=== PATIENT | male | born 1950 | race Caucasian/White ===

== ENCOUNTER → 2016-03-24 | Outpatient (CLI) | payer OTHER, MEDICARE ==
[~2016-03-24] MED LIST: ALBUAER19 INH; AMOX875T3 PO; ASPI81TA21 PO; CALCTAB13 PO; HYDR25TA4 PO; LISI-729 PO; MULTTAB58 PO; PRAV20TA PO
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
== END | disposition home or self-care (01) ==
LOC: C.NEUR 14:00
PROVIDERS: ATTEND Psychiatry & Neurology Neurology
DX: R55 Syncope and collapse (principal)

== ENCOUNTER 2019-10-08 09:14 | Inpatient (IN) ==
[2019-10-08] MEDS ORDERED: ONDANSETRON INJ 2 MG/ML 2 ML VIAL IV STA (10:31)
--- NOTE | 2019-10-08 10:50 | XRay Report ---
XR knee RT 3V CLINICAL HISTORY: Postoperative swelling. COMPARISON: None FINDINGS: Mild lateral patellar tilt is noted. Alignment of the right knee is otherwise anatomic. Th ere is no fracture or suspicious lesion. There is a moderate size joint effusion. Note is made of a 1 .2 cm calcific density projecting lateral to the distal metadiaphysis of the right femur. Soft tissue swelling of the right knee is noted. Mild to moderate right knee osteoarthritis is noted. Moderate v ascular calcification. IMPRESSION: 1. No acute fracture. 2. Moderate size right knee joint effusion. Possible joint body. Soft tissue swelling 3. Moderate tricompartmental osteoarthritis of the right knee. ACT 112: Negative or not required by law. Electronically signed by: Laron Vigil M.D. 10/08/2019 10:49 AM
[2019-10-08] MEDS: HYDROmorphone INJ 0.5 MG/0.5 ML SYR IV PRN ×4 (11:12→14:47)
[2019-10-08 11:25] LABS: Basophils # (auto) 0.04 K/uL (0-0.2); Basophils % (auto) 0.6 %; Eosinophils # (auto) 0.28 K/uL (0-0.5); Eosinophils % (auto) 4.1 %; Hemoglobin 15.4 g/dL (14.0-18.0); Immature Granulocytes # (auto) 0.03 K/uL (0.00-0.02); Immature Granulocytes % (auto) 0.4 %; Lymphocytes # (auto) 1.46 K/uL (1.2-3.4); Lymphocytes % (auto) 21.4 %; Mean Corpuscular Hemoglobin 32.3 pg (25-34); Mean Corpuscular Hgb Conc 33.5 g/dL (32-36); Mean Corpuscular Volume 96.4 fL (80-100); Mean Platelet Volume 10.5 fL (7.4-10.4); Monocytes % (auto) 14.7 %; Neutrophils % (auto) 58.8 %; Platelet Count 226 K/uL (130-400); RDW Standard Deviation 49.5 fL (36.4-46.3); Red Blood Count 4.77 M/uL (4.7-6.1); White Blood Count 6.81 K/uL (4.8-10.8)
[2019-10-08 11:39] LABS: BUN Creatinine Ratio 19.1 (10-20); Calcium 8.7 mg/dl (8.5-10.1); Creatinine Clr Calc Pharmacy 87.7 ml/min; Est GFR (African American) 85.9; Est GFR (Non-African American) 74.1; Potassium 4.4 mmol/L (3.5-5.1)
[2019-10-08 11:40] LABS: C Reactive Protein 0.89 mg/dl (0-0.29)
[2019-10-08] MEDS ORDERED: XYLOCAINE 1%/SOD BICARB 20 ML VIAL INFIL ONE (12:28)
[2019-10-08] MEDS ORDERED: ACETAMINOPHEN 500 MG TAB PO STA (14:44)
[2019-10-08] MEDS ORDERED: ACETAMINOPHEN 500 MG TAB ONE (14:45)
[2019-10-08 15:14] LABS: Appearance Synovial Fluid CLOUDY; Color Synovial Fluid AMBER; Mononuclear WBC Synovial 92.9 %; Polynuclear WBC Synovial 7.1 %; RBC Synovial Fluid (A) 12000 /uL; Source Synovial Fluid KNEE; WBC Synovial Fluid (A) 143 /ul (0-200)
[2019-10-08] MEDS ORDERED: VANCOMYCIN HCL 2,250 MG in SODIUM CHLORIDE 0.9% 500 ML IV ONE (15:36)
[2019-10-08] MEDS ORDERED: cefTRIAXone SODIUM 2,000 MG/70 ML BAG IV STA (15:36)
[2019-10-08] MEDS ORDERED: VANCOMYCIN CONSULT ACTIVE PRN (15:36)
--- NOTE | 2019-10-08 16:32 | Orthopedic Consultation ---
Date of Consultation October 08, 2019 Assessment & Plan (1) Cellulitis of right leg: He appears to have cellulitis of his right lower leg, with fairly diffuse edema of the entire right leg. Other possibilities include a deep venous thrombosis, although DVT ultrasound 2 days ago was negative. It may be worthwhile to repeat this. His symptoms did seem to improve slightly with oral antibiotics started 8 days ago, although now he feels like his pain and other symptoms are worsening over the past 3 to 4 days. I think he likely needs admitted to the Internal Medicine service for IV antibiotics to treat the cellulitis. He has no evidence of a septic knee joint. His knee joint looks very good on exam. It is cool, not erythematous or swollen, and aspiration today was negative for septic joint. No indication for surgical intervention at this time. Present on Admission?: Yes History of Present Illness Reason for Consultation: Right leg pain, redness, and swelling Requesting Physician: Dr. Albaro Pedro History of Present Illness Mr. Perea is a 68-year-old male who presents to the emergency room today with worsening right leg pain, swelling, and redness. History is obtained from the patient, [facility] [place] [facility] medical records, and discussion with Dr. Baca's PA, who recently saw him in clinic. He recently underwent a right knee arthroscopy with partial medial meniscectomy and shaving chondroplasty of the patella on September [address] Baca. After the surgery, he noticed this pain, swelling, and redness on his lower leg. He saw Dr. Baca in clinic on September 29, at which time the lower leg was actually weeping some serous fluid. There were no problems noted with the knee at the time. He was started on oral Keflex, and the patient reports that the weeping wounds in the lower leg stopped with that treatment. He then saw the PA, César Cueva, 2 days ago on October 05, when he had continued to have this leg pain and swelling, although no weeping at this point. There was concern for possible blood clot, and a DVT ultrasound was ordered, which was negative. He called the clinic again yesterday, and arrangements were made for him to see Wound Care for possible Unna boot application, which is currently set up for Thursday. However, the patient feels like his pain is progressively worsening, and he therefore presented to the emergency department today. He denies any significant medical problems. He has never had anything like this occur before. He denies any history of heart disease or heart failure. He does denies any clotting disorders. He is not on any anticoagulation after his knee surgery or for any other reason. Allergies Allergy/AdvReac Type Severity Reaction Status Date / Time desipramine Allergy Unknown unknown Verified 03/14/16 06:37 Tetracyclines Allergy Unknown unknown Verified 03/14/16 06:37 trimethoprim Allergy Unknown unknown Verified 03/14/16 06:37 Home Medications Home Medications Medication Instructions Recorded Confirmed Type albuterol sulfate [Ventolin HFA] 2 inh INHALATION Q4H PRN 10/08/19 10/08/19 History allopurinol 300 mg PO QAM 10/08/19 10/08/19 History atorvastatin 40 mg PO QAM 10/08/19 10/08/19 History cephalexin 500 mg PO Q8H 10/08/19 10/08/19 History losartan 100 mg PO QAM 10/08/19 10/08/19 History multivitamin [Multiple Vitamins] 1 tab PO DAILY 10/08/19 10/08/19 History oxycodone 5 - 10 mg PO Q6H PRN 10/08/19 10/08/19 History Patient History Social History Feels Safe at Home: Yes Smoking Status: Never smoker Physical Exam Physical Exam: General: The patient appears well developed and well nourished. Awake, alert, and oriented x 3. He appears very comfortable and in no apparent distress. Appropriate mood and affect. Normal gait and station. Normal coordination and balance. Skin: The skin over the right knee shows 2 small and well-healed arthroscopy incision sites without evidence of infection. No erythema whatsoever anywhere around the knee joint itself. He has erythema starting in the calf area, and extending all the way down to his ankle and foot. Inspection/Palpation: Visual inspection reveals no gross deformity of the knee. There is a small palpable knee joint effusion. No tenderness to palpation directly around the knee joint. The knee joint itself is cool with no significant warmth, erythema, or induration. However, he has significant warmth, induration, and fairly severe tenderness to palpation around the lower leg circumferentially around the calf area and extending into the ankle and foot. Range of Motion: Range of motion of the entire lower leg and foot is limited due to pain. Stability: There is no gross ligamentous laxity. Strength: Knee strength is limited due to pain. Sensation: The patient reports no numbness in the foot. Vascular: Foot is warm and well perfused. He appears to have diffuse edema of the entire right leg compared to the left, extending all the way up to the thigh. Results & Data ([facility]) Vital Signs (Past 12 Hours) Vital Signs Temp Pulse Pulse Resp BP BP Pulse Ox 10/08/19 16:00 72 18 126/86 97 10/08/19 14:43 80 18 138/81 96 10/08/19 13:09 80 18 149/91 H 92 10/08/19 12:21 78 18 151/106 H 96 10/08/19 11:05 76 18 159/102 H 97 10/08/19 09:29 36.5 C 82 20 182/102 H 96 Laboratory Results Knee aspiration performed in the emergency department today shows only 143 white blood cells (93% monocytes, 7% PMNs), 12,000 red blood cells. Diagnostic Findings X-ray of the right knee shows some mild diffuse arthritis, especially in the patellofemoral joint. There appears to be a possible loose body up in the suprapatellar pouch. Ultrasound performed 2 days ago on October 05 was negative for deep venous thrombosis.
--- NOTE | 2019-10-08 17:05 | History & Physical Report ---
Date of Service October 08, 2019 Assessment & Plan (1) Cellulitis of right leg: This is a 68-year-old male who has significant past medical history of HTN, HLD, gout, Bronchiectasis, chronic low back pain who presents to ED secondary to worsening right leg pain, redness and swelling times approximately 10 days In ED patient remained hemodynamically stable and was afebrile. His white blood cell count was WNL, H&H stable at 15.4 and 46.0, platelet 226, BUN 19, creatinine 1.02, ESR 35, CRP 0.89. Right knee x-ray revealed no acute fracture, moderate sized right knee effusion, moderate tricompartmental arthritis. He underwent aspiration of the joint which was rod in color and normal WBCs. No overt pus per ED provider. He was seen and evaluated by orthopedics while in ED. Blood culture and synovial fluid culture sent for analysis. Symptoms felt likely due to cellulitis versus joint infection. Failed outpt oral antibiotic therapy. He was started on IV vancomycin and rocephin. admit to med/surg continue IV antibiotics Vancomycin and rocephin elevate RLE orthopedics consult appreciated oxycodone 5-10mg prn pain control bowel regimen (2) HTN (hypertension): blood presure stable continue losartan (3) HLD (hyperlipidemia): continue statin (4) Gout: continue allopurinol (5) DVT prophylaxis: SQ Lovenox Dispostion: admit to med/surg Follow up: PCP Dr. Mota upon discharge along with appropriate orthopedic follow up Pt was seen and examined in collaboration with Dr. Olson, please see addendum. History of Present Illness Chief Complaint: R leg swelling and increased redness x 10 days. Primary Care Provider: Anselmo Mota MD This is a 68-year-old male who has significant past medical history of HTN, HLD, gout, Bronchiectasis, chronic low back pain who presents to ED secondary to worsening right leg pain, redness and swelling times approximately 10 days. Of significance patient underwent R knee arthroscopy with partial medial meniscectomy and shaving chondroplasty of the patella on 09/28/2019. Since procedure he has been experiencing increased right leg pain, swelling and warmth. He was seen in clinic on 10/02 and started on Keflex and reevaluated on 10/05. He underwent right lower extremity venous Doppler on 10/05 which was negative. He has been taking Keflex as [id number] mg 3 times daily. He compares pain to right leg to his gout. Complains of being warm and increased swelling. Swelling extends from behind the knee to the ankle and foot. He denies any fever, chills, sweats, lightheadedness, dizziness, chest pain, shortness of breath, cough, nausea, vomiting, diarrhea, abdominal pain. He did move his bowels yesterday. He denies any constipation despite taking oxycodone for pain. His appetite has been normal. Of significance he was tested for COVID on 09/25 for preop which was negative. In ED patient remained hemodynamically stable and was afebrile. His white blood cell count was WNL, H&H stable at 15.4 and 46.0, platelet 226, BUN 19, creatinine 1.02, ESR 35, CRP 0.89. Right knee x-ray revealed no acute fracture, moderate sized right knee effusion, moderate tricompartmental arthritis. He underwent aspiration of the joint which was rod in color and normal WBCs. No overt pus per ED provider. He was seen and evaluated by orthopedics while in ED. Blood culture and synovial fluid culture sent for analysis. Symptoms felt likely due to cellulitis versus joint infection. He was started on IV vancomycin and rocephin. Allergies Allergy/AdvReac Type Severity Reaction Status Date / Time desipramine Allergy Unknown unknown Verified 03/14/16 06:37 Tetracyclines Allergy Unknown unknown Verified 03/14/16 06:37 trimethoprim Allergy Unknown unknown Verified 03/14/16 06:37 Home Medications Home Medications Medication Instructions Recorded Confirmed Type albuterol sulfate [Ventolin HFA] 2 inh INHALATION Q4H PRN 10/08/19 10/08/19 History allopurinol 300 mg PO QAM 10/08/19 10/08/19 History atorvastatin 40 mg PO QAM 10/08/19 10/08/19 History cephalexin 500 mg PO Q8H 10/08/19 10/08/19 History losartan 100 mg PO QAM 10/08/19 10/08/19 History multivitamin [Multiple Vitamins] 1 tab PO DAILY 10/08/19 10/08/19 History oxycodone 5 - 10 mg PO Q6H PRN 10/08/19 10/08/19 History Past Med/Surg History Medical History Bronchiectasis Chronic low back pain Gout HLD (hyperlipidemia) HTN (hypertension) Surgical History History of arthroscopy of knee History of colonoscopy FH colon ca, hx of polypectomy History of cystoscopy History of hernia repair History of tonsillectomy Family History Brother , 19 Liver cancer Brother Cancer colon ca Father Hypertension Mother , 80 Myocardial infarction Social History (Updated 10/08/19 @ 17:02 by Marissa Fuentes PA-C) Preferred Language: Persian Communication Ability: Effective Senior Accountant Required: No Beliefs That Will Affect Care: None marital status: Current Living Situation: Spouse Other Information That Helps Us Care for You: No Feels Safe at Home: Yes Safety Concerns: Feels Safe At This Time Smoking Status: Never smoker Do You Dip or Chew Tobacco: No ; Second Hand Exposure: No ; Tobacco Cessation Education Requested by Patient: No Hx Alcohol Use: No Hx Substance Use: No Review of Systems Review of Systems: All systems reviewed & are unremarkable except as noted in HPI & below Physical Exam Physical Exam: Constitutional: WD/WN, vitals as above, NAD, sitting up in bed, pleasant, conversing easily Head: Normocephalic, Atraumatic Eyes: PERRL, conjunctivae normal, anicteric sclerae ENMT: external ear and nose normal, oropharynx normal Neck: trachea midline, no thyromegaly normal visual inspection Respiratory: normal respiratory effort, lungs clear to auscultation, no wheeze, rales, rhonchi. Normal insp/exp effort, no accessory muscle use Cardiovascular: RRR, 1/6 FERNANDO noted RUSB, no murmur Vessels: no JVD or carotid bruit Chest: normal inspection of chest Abdomen: normal bowel sounds, soft, nontender, no hepatosplenomegaly Musculoskeletal: no cyanosis or clubbing, extremities motor strength 5/5 , right knee sutures CDI, mild knee effusion but otherwise no erythema to joint itself. Right lower extremity erythema from right tibial tubercle to right ankle pretibially, warm, painful to palpation and edematous extending from tibial tubercle to dorsal pedal area. bilateral pedal pulse +2 and equal. Skin: no rashes, multiple SKs, warm and dry normal turgor Neurologic: PERRL, EOMI, accommodation nl, no face palsy, no dysarthria CN's II-XI intact bilaterally and moves all extremities Psychiatric: A+Ox3, euthymic affect Lymphatic: no cervical or axillary lymphadenopathy : deferred Results & Data Results & Data ([facility]) Vital Signs (Past 12 Hours) Vital Signs Temp Pulse Pulse Resp BP BP Pulse Ox 10/08/19 16:00 72 18 126/86 97 10/08/19 14:43 80 18 138/81 96 10/08/19 13:09 80 18 149/91 H 92 10/08/19 12:21 78 18 151/106 H 96 10/08/19 11:05 76 18 159/102 H 97 10/08/19 09:29 36.5 C 82 20 182/102 H 96 Laboratory Results Short CBC 10/08/19 Range/Units 11:05 WBC 6.81 (4.8-10.8) K/uL Hgb 15.4 (14.0-18.0) g/dL Hct 46.0 (42-52) % Plt Count 226 (130-400) K/uL BMP 10/08/19 11:05 Sodium 141 Potassium 4.4 Chloride 110 H Carbon Dioxide 29 BUN 19 H Creatinine 1.02 Glucose 94 Calcium 8.7 Diagnostic Findings Knee Xray: IMPRESSION: 1. No acute fracture. 2. Moderate size right knee joint effusion. Possible joint body. Soft tissue swelling 3. Moderate tricompartmental osteoarthritis of the right knee. Medications Administered Hydromorphone HCl (Dilaudid) 0.5 mg IV Q15M PRN PRN Reason: Pain Stop: 10/22/19 10:30 Last Admin: 10/08/19 14:47 Dose: 0.5 mg Documented by: [id number] Admin: 10/08/19 12:23 Dose: 0.5 mg Documented by: [id number] Admin: 10/08/19 11:56 Dose: 0.5 mg Documented by: [id number] Admin: 10/08/19 11:12 Dose: 0.5 mg Documented by: [id number] Vancomycin HCl 2,250 mg/ (Sodium Chloride) 545 mls @ 200 mls/hr IV NOW ONE Stop: 10/08/19 18:19 Last Admin: 10/08/19 16:45 Dose: 200 mls/hr Documented by: [id number] Discontinued Medications Acetaminophen (Tylenol) 1,000 mg PO NOW STA Stop: 10/08/19 14:45 Last Admin: 10/08/19 14:46 Dose: 1,000 mg Documented by: [id number] Acetaminophen (Tylenol) Confirm Administered Dose 1,000 mg .ROUTE .STK-MED ONE Stop: 10/08/19 14:46 Last Admin: 10/08/19 14:47 Dose: Not Given Documented by: [id number] Ceftriaxone Sodium (Rocephin) 2,000 mg in 70 mls @ 140 mls/hr IV NOW STA Stop: 10/08/19 16:05 Last Infusion: 10/08/19 16:12 Dose: 0 mls/hr Documented by: [id number] Admin: 10/08/19 15:45 Dose: 140 mls/hr Documented by: [id number] Lidocaine HCl (Buffered Lidocaine 1%) Confirm Administered Dose 20 ml INFIL .STK-MED ONE Stop: 10/08/19 12:29 Last Admin: 10/08/19 13:10 Dose: 20 ml Documented by: [id number] Ondansetron HCl (Zofran) 4 mg IV NOW STA Stop: 10/08/19 10:32 Last Admin: 10/08/19 11:12 Dose: 4 mg Documented by: [id number] Code Status & VTE Plan Code Status Full Code VTE Prophylaxis Plan VTE Prophylaxis will be ordered: Yes Supervising Physician Co-Signing Physician Notes Patient is a 68-year-old male with history of hypertension, hyperlipidemia, gout and other medical problems presents with history of worsening right leg pain, redness, swelling since 10 days duration. Patient had right knee arthroplasty 10 days ago. Patient is evaluated by orthopedics in ED and aspiration of the right knee was done he admitted, spinal fluid was sent for cultures. Venous Doppler is negative for DVT. Please review HPI for complete details of presentation. On exam patient is well-built and nourished, no apparent distress, normocephalic atraumatic, lungs are clear to auscultation S1-S2,+ murmur, bilateral lower extremity edema, abdomen soft, nontender, normal bowel sounds, skin no focal neurologic deficits, right lower extremity erythema,+ w armth, swelling noted. Patient is admitted for management of right leg cellulitis. Will start on IV vancomycin, Rocephin. Pain control. Blood cultures obtained. Blood pressure is elevated likely situational secondary to pain. Adjust antihypertensive medication as needed. I personally reviewed the record. Patient is interviewed and examined at bedside. Patient's care is coordinated with Marissa Fuentes PA-C. Please refer to the documentation above for details of patient's presentation and for discussion of other issues.
--- NOTE | 2019-10-08 17:16 | Ultrasound Report ---
RIGHT LOWER EXTREMITY VENOUS DOPPLER CLINICAL HISTORY: right leg swelling COMPARISON STUDY: Right lower extremity venous Doppler ultrasound October 06, 2019. TECHNIQUE: Sonography of the deep venous system of the right lower extremity was performed. Compress ion and augmentation were evaluated. FINDINGS: The right common femoral, superficial femoral and popliteal veins were compressible. Augme ntation was normal. Flow was shown within the deep calf vessels. IMPRESSION: No evidence of deep venous thrombus within the right lower extremity. ACT 112: Negative or not required by law. Electronically signed by: Laron Vigil M.D. 10/08/2019 5:15 PM
[2019-10-08] MEDS ORDERED: MoRPHine SULFATE 4 MG/ML 1 ML CARP\\VIAL IV STA (17:24)
--- NOTE | 2019-10-08 17:40 | Emergency Department Note ---
Impression & Plan Cellulitis of right leg, Post-operative pain, Hemarthrosis ED Provider Note INFORMANT: [Patient] ED PROVIDER(S): Albaro Pedro MD CHIEF COMPLAINT: Right leg pain PLAN: Disposition: Admitted Condition: [Good] MEDICAL DECISION MAKING: Patient presented due to worsening right leg pain and swelling. He also noted redness. He had surgery and was on Keflex. Despite using the Keflex and increasing his pain medicine to oxycodone to every 6 hours he was still having increased pain. Outpatient ultrasound imaging was reviewed and was -2 days ago. The patient notes he has had increased pain and swelling since. His CBC and chemistry panel was unremarkable. CRP is mildly elevated. I did consult with Dr. Jesus Parham of [facility]. He asked for the need to be aspirated in order to help with the decision making. A knee aspiration was done by me after the patient consented. I gave my usual and customary discussion regarding this issue. This revealed hemarthrosis. No pus was noted. White cells were noted but within normal range. He had a culture and Gram stain sent. The patient required several doses of IV Dilaudid for comfort. He was still having pain. At that point Dr. Parham did present to the emergency department and evaluated the patient. He felt that the knee did not require any surgical intervention. Due to the redness, pain and swelling there was concern for cellulitis of the right leg. The wounds themselves look good per orthopedics. Internal medicine admission was recommended. I did discuss the case with Marissa Fuentes PA-C. The patient will be admitted under Dr. Olson. The patient was given IV Rocephin and vancomycin for broad-spectrum co verage. Due to the increased swelling I did order a repeat ultrasound. That is pending. Triage Nursing notes reviewed and agree them. Vital Signs: reviewed and remarkable for . Differential diagnosis: Fracture, subluxation, dislocation, contusion, ligamentous injury, neurovascular, compartment syndrome, rhabdomyolysis, as well as other pathologies. Diagnostics interpreted by me: Imaging studies: X-ray imaging of the right knee reveals significant effusion. No fracture noted. No subcu air. Consultation(s): [facility] HPI: The patient is a 68 year old male who presents to the Emergency Room with complaints of right leg pain and swelling. This started over 1 week ago and is worsening. The patient also notes the following associated symptoms, redness and warmth of the leg. The patient has been using Keflex and oxycodone relieving factors. Current pain is rated as 8/10. Patient had knee scope surge ry by [facility], Dr. Baca. He notes on office follow-up with increasing pain they did start him on Keflex. Despite taking that and the oxycodone he is getting worse. He did have an outpatient ultrasound which was negative for DVT 2 days ago. Pt denies LOC, headache, fevers, chills, diaphoresis, visual changes, neck pain, chest pain, breathing difficulties, nausea, vomiting, abdominal pain, back pain, melena, hematochezia, urinary symptoms, numbness, weakness, lymphadenopathy, rash, or other complaints. ROS: See above HPI for pertinent positives & negatives. A total of [10] systems reviewed and were otherwise negative. PAST MEDICAL HISTORY:Gout PAST SURGICAL HISTORY:[See Below] FAMILY HISTORY:[See Below] SOCIAL HISTORY:[See Below] no tobacco HOME MEDICATIONS:[See Below] ALLERGIES:[See Below] VITALS:[See Below] PHYSICAL EXAMINATION: GENERAL: Awake, alert, well-appearing, in no distress HENT: Normocephalic, atraumatic. Oropharynx unremarkable. EYES: Normal conjunctiva. Sclera non-icteric. NECK: Inspection normal. Non-tender. Supple. No nuchal rigidity. FROM. No masses. RESPIRATORY: Clear to auscultation. No wheezes. No rales. Normal respiratory effort. CARDIAC: Normal rate. Normal rhythm. No murmurs. No rubs. Extremities warm and well perfused. Pulses equal. No JVD. GI: Soft, non-distended. No tenderness to palpation. No rebound or guarding. No masses. RECTAL: Deferred. MUSCULOSKELETAL: Atraumatic. Chest examination reveals no tenderness. The back is symmetrical on inspection without obvious abnormality. There is no CVA tenderness to palpation. Moderate right knee joint edema. Incisions are clean dry and intact. Range of motion limited secondary to pain. LOWER EXTREMITIES: Calves are equal size bilaterally and non-tender. 2+ right- sided edema. Warmth and erythematous right-sided discoloration. NEURO: Normal sensorium. No sensory or motor deficits noted. SKIN: No rash or jaundice noted. ED COURSE: PROCEDURE: ASPIRATION: Indication: Suspected infection. Verbal consent was obtained after the risks and benefits were explained, including but not limited to bleeding, scarring, infection, pain, and bone/joint/nerve damage. At this time, the risks of the procedure are less than the risks of NOT performing the procedure. A time out was taken and the correct patient and site identified. The skin over the lateral right knee joint was prepped in the standard sterile fashion. Local anesthesia was provided with 1 mL of 1% lidocaine. Using sterile technique the needle was carefully inserted into the knee joint and 10 cc of bloody/cloudy fluid was obtained. The patient tolerated the procedure well. A bandaid was placed. No complications. [Critical Care:] [None] Albaro Pedro MD Past Med/Surg History Medical History Bronchiectasis Chronic low back pain Gout HLD (hyperlipidemia) HTN (hypertension) Surgical History History of arthroscopy of knee History of colonoscopy FH colon ca, hx of polypectomy History of cystoscopy History of hernia repair History of tonsillectomy Family History Brother , 19 Liver cancer Brother Cancer colon ca Father Hypertension Mother , 80 Myocardial infarction Social History (Updated 10/08/19 @ 17:02 by Marissa Fuentes PA-C) Preferred Language: Bruneian Communication Ability: Effective marital status: Current Living Situation: Spouse Feels Safe at Home: Yes Smoking Status: Never smoker Hx Alcohol Use: No Hx Substance Use: No Allergies Allergies Allergy/AdvReac Type Severity Reaction Status Date / Time desipramine Allergy Unknown unknown Verified 03/14/16 06:37 Tetracyclines Allergy Unknown unknown Verified 03/14/16 06:37 trimethoprim Allergy Unknown unknown Verified 03/14/16 06:37 Home Meds Home Medications Medication Instructions Recorded Confirmed albuterol sulfate [Ventolin HFA] 2 inh INHALATION Q4H PRN 10/08/19 10/08/19 allopurinol 300 mg PO QAM 10/08/19 10/08/19 atorvastatin 40 mg PO QAM 10/08/19 10/08/19 cephalexin 500 mg PO Q8H 10/08/19 10/08/19 losartan 100 mg PO QAM 10/08/19 10/08/19 multivitamin [Multiple Vitamins] 1 tab PO DAILY 10/08/19 10/08/19 oxycodone 5 - 10 mg PO Q6H PRN 10/08/19 10/08/19 Results & Data (ED) Vital Signs Vital Signs - 24 hr 10/08/19 09:29 10/08/19 11:05 10/08/19 12:21 Temperature 36.5 C Temperature Source Oral Pulse Rate 82 Pulse Rate [Left Finger] 76 78 Respiratory Rate 20 18 18 Respiratory Effort / Characteristics Non-Labored Respiratory Depth Normal Blood Pressure 182/102 H Blood Pressure [Left Arm] 159/102 H 151/106 H Blood Pressure Mean 128 Blood Pressure Mean [Left Arm] 121 121 Pulse Oximetry 96 97 96 Oxygen Delivery Method Room Air Room Air Room Air Sepsis Recent Fever Within 48 Hours No Sepsis New/Unexplained Change in Mental Status N/A Sepsis Action Taken by Nursing No Action Required 10/08/19 13:09 10/08/19 14:43 10/08/19 16:00 Temperature Temperature Source Pulse Rate Pulse Rate [Left Finger] 80 80 72 Respiratory Rate 18 18 18 Respiratory Effort / Characteristics Respiratory Depth Blood Pressure Blood Pressure [Left Arm] 149/91 H 138/81 126/86 Blood Pressure Mean Blood Pressure Mean [Left Arm] 110 100 99 Pulse Oximetry 92 96 97 Oxygen Delivery Method Room Air Room Air Room Air Sepsis Recent Fever Within 48 Hours Sepsis New/Unexplained Change in Mental Status Sepsis Action Taken by Nursing 10/08/19 17:21 Temperature Temperature Source Pulse Rate Pulse Rate [Left Finger] 77 Respiratory Rate 18 Respiratory Effort / Characteristics Respiratory Depth Blood Pressure Blood Pressure [Left Arm] 138/62 Blood Pressure Mean Blood Pressure Mean [Left Arm] 87 Pulse Oximetry 96 Oxygen Delivery Method Sepsis Recent Fever Within 48 Hours Sepsis New/Unexplained Change in Mental Status Sepsis Action Taken by Nursing Laboratory Data Result diagrams: 10/08/19 11:05 10/08/19 11:05 Lab Results 10/08/19 10/08/19 10/08/19 Range/Units 11:05 11:05 11:05 WBC 6.81 (4.8-10.8) K/uL RBC 4.77 (4.7-6.1) M/uL Hgb 15.4 (14.0-18.0) g/dL Hct 46.0 (42-52) % MCV 96.4 (80-100) fL MCH 32.3 (25-34) pg MCHC 33.5 (32-36) g/dL RDW Std Deviation 49.5 H (36.4-46.3) fL RDW Coeff of Abner 14.0 (11.5-14.5) % Plt Count 226 (130-400) K/uL MPV 10.5 H (7.4-10.4) fL Immature Gran % (Auto) 0.4 % Neut % (Auto) 58.8 % Lymph % (Auto) 21.4 % Sutter % (Auto) 14.7 % Eos % (Auto) 4.1 % Baso % (Auto) 0.6 % Neut # (Auto) 4.00 (1.4-6.5) K/uL Lymph # (Auto) 1.46 (1.2-3.4) K/uL Sutter # (Auto) 1.00 H (0.11-0.59) K/uL Eos # (Auto) 0.28 (0-0.5) K/uL Baso # (Auto) 0.04 (0-0.2) K/uL Immature Gran # (Auto) 0.03 H (0.00-0.02) K/uL ESR 35 H (0-14) mm/hr Sodium 141 (136-145) mmol/L Potassium 4.4 (3.5-5.1) mmol/L Chloride 110 H (98-107) mmol/L Carbon Dioxide 29 (21-32) mmol/L Anion Gap 2.0 L (3-11) BUN 19 H (7-18) mg/dl Creatinine 1.02 (0.6-1.4) mg/dl Est Cr Clr Drug Dosing 87.7 ml/min Est GFR ( Amer) 85.9 Est GFR (Non-Af Amer) 74.1 BUN/Creatinine Ratio 19.1 (10-20) Glucose 94 (70-99) mg/dl Calcium 8.7 (8.5-10.1) mg/dl C-Reactive Protein 0.89 H (0-0.29) mg/dl Synovial Source Synovial Color Synovial Appearance Synovial WBC (0-200) /ul Synovial RBC /uL Synovial Polynuclear % % Synovial Mononuclear % % 10/08/19 10/08/19 Range/Units 11:05 13:50 WBC (4.8-10.8) K/uL RBC (4.7-6.1) M/uL Hgb (14.0-18.0) g/dL Hct (42-52) % MCV (80-100) fL MCH (25-34) pg MCHC (32-36) g/dL RDW Std Deviation (36.4-46.3) fL RDW Coeff of Abner (11.5-14.5) % Plt Count (130-400) K/uL MPV (7.4-10.4) fL Immature Gran % (Auto) % Neut % (Auto) % Lymph % (Auto) % Sutter % (Auto) % Eos % (Auto) % Baso % (Auto) % Neut # (Auto) (1.4-6.5) K/uL Lymph # (Auto) (1.2-3.4) K/uL Sutter # (Auto) (0.11-0.59) K/uL Eos # (Auto) (0-0.5) K/uL Baso # (Auto) (0-0.2) K/uL Immature Gran # (Auto) (0.00-0.02) K/uL ESR (0-14) mm/hr Sodium (136-145) mmol/L Potassium (3.5-5.1) mmol/L Chloride (98-107) mmol/L Carbon Dioxide (21-32) mmol/L Anion Gap (3-11) BUN (7-18) mg/dl Creatinine (0.6-1.4) mg/dl Est Cr Clr Drug Dosing ml/min Est GFR ( Amer) Est GFR (Non-Af Amer) BUN/Creatinine Ratio (10-20) Glucose (70-99) mg/dl Calcium (8.5-10.1) mg/dl C-Reactive Protein Cancelled (0-0.29) mg/dl Synovial Source KNEE Synovial Color RIZWANA Synovial Appearance CLOUDY Synovial WBC 143 (0-200) /ul [place] [address] /uL Synovial Polynuclear % 7.1 % Synovial Mononuclear % 92.9 % Administered Medications Hydromorphone HCl (Dilaudid) 0.5 mg IV Q15M PRN PRN Reason: Pain Stop: 10/22/19 10:30 Last Admin: 10/08/19 14:47 Dose: 0.5 mg Documented by: [id number] Admin: 10/08/19 12:23 Dose: 0.5 mg Documented by: [id number] Admin: 10/08/19 11:56 Dose: 0.5 mg Documented by: [id number] Admin: 10/08/19 11:12 Dose: 0.5 mg Documented by: [id number] Vancomycin HCl 2,250 mg/ (Sodium Chloride) 545 mls @ 200 mls/hr IV NOW ONE Stop: 10/08/19 18:19 Last Admin: 10/08/19 16:45 Dose: 200 mls/hr Documented by: [id number] Discontinued Medications Acetaminophen (Tylenol) 1,000 mg PO NOW STA Stop: 10/08/19 14:45 Last Admin: 10/08/19 14:46 Dose: 1,000 mg Documented by: [id number] Acetaminophen (Tylenol) Confirm Administered Dose 1,000 mg .ROUTE .STK-MED ONE Stop: 10/08/19 14:46 Last Admin: 10/08/19 14:47 Dose: Not Given Documented by: [id number] Ceftriaxone Sodium (Rocephin) 2,000 mg in 70 mls @ 140 mls/hr IV NOW STA Stop: 10/08/19 16:05 Last Infusion: 10/08/19 16:12 Dose: 0 mls/hr Documented by: [id number] Admin: 10/08/19 15:45 Dose: 140 mls/hr Documented by: [id number] Lidocaine HCl (Buffered Lidocaine 1%) Confirm Administered Dose 20 ml INFIL .STK-MED ONE Stop: 10/08/19 12:29 Last Admin: 10/08/19 13:10 Dose: 20 ml Documented by: [id number] Ondansetron HCl (Zofran) 4 mg IV NOW STA Stop: 10/08/19 10:32 Last Admin: 10/08/19 11:12 Dose: 4 mg Documented by: [id number] Discharge Plan Visit Data Chief Complaint: Leg Injury/Pain Stated Complaint: RIGHT KNEE PAIN BELOW KNEE IS RED AND SWOLLEN Other Complaint: Knee Injury/Pain ED Provider: Albaro Pedro Discharge Problem: Cellulitis of right leg, Post-operative pain, Hemarthrosis Discharge Instructions Interventions: ED Discharge Assessment Last Done: 10/08/19 17:30 Forms Stand Alone Forms: My [facility] [employer] Prescriptions Prescriptions: No Action multivitamin [Multiple Vitamins] Tablet 1 tab PO DAILY RF: 0 atorvastatin 40 mg tablet 40 mg PO QAM RF: 0 cephalexin 500 mg capsule 500 mg PO Q8H RF: 0 allopurinol 300 mg tablet 300 mg PO QAM RF: 0 albuterol sulfate [Ventolin HFA] 90 mcg/actuation HFA aerosol inhaler 2 inh INHALATION Q4H PRN (Reason: Shortness Of Breath) RF: 0 losartan 100 mg tablet 100 mg PO QAM RF: 0 oxycodone 5 mg tablet 5 - 10 mg PO Q6H PRN (Reason: Pain) RF: 0 Referrals Referrals: Anselmo Mota MD [Primary Care Provider] -
[2019-10-08] MEDS ORDERED: ONDANSETRON INJ 2 MG/ML 2 ML VIAL IV PRN (18:09)
[2019-10-08] MEDS ORDERED: POLYETHYLENE (MIRALAX) 17 GM PACK PO PRN (18:09)
[2019-10-08] MEDS ORDERED: MAGNESIUM HYDROXIDE SUSP 30 ML UDC PO PRN (18:09)
[2019-10-08] MEDS ORDERED: ALUMINUM/MAGNESIUM SUSP 30 ML UDC PO PRN (18:09)
[2019-10-08] MEDS ORDERED: ALBUTEROL HFA 8 GM INHALER INH PRN (18:09)
[2019-10-08] MEDS ORDERED: VANCOMYCIN HCL 2,250 MG in SODIUM CHLORIDE 0.9% 500 ML IV STA (18:13)
--- NOTE | 2019-10-08 19:06 | Pharmacy Report ---
Pharmacy Abx Initial Consult - Date of Service October 08, 2019 - Pharmacy Dosing Scope Date of Consult: 10/08/2019 Consultation requested by: Marissa Fuentes PA-C Pharmacy is consulted to initiate Vancomycin IV dosing therapy, order appropriate labs and adjust drug dose/frequency. - Subjective The patient is a 68 year old M admitted on 10/08/19 16:50. - Objective Height: 6 ft Weight: 113.8 kg Vital Signs (Past 12hrs): Vital Signs Temp Pulse Pulse Resp BP BP Pulse Ox 10/08/19 18:10 36.3 C L 82 16 178/97 H 98 10/08/19 17:21 77 18 138/62 96 10/08/19 16:00 72 18 126/86 97 10/08/19 14:43 80 18 138/81 96 10/08/19 13:09 80 18 149/91 H 92 10/08/19 12:21 78 18 151/106 H 96 10/08/19 11:05 76 18 159/102 H 97 10/08/19 09:29 36.5 C 82 20 182/102 H 96 Lab Results (24hrs): Laboratory Tests (24 Hours) 10/08/19 10/08/19 10/08/19 11:05 11:05 11:05 WBC Neut # (Auto) ESR 35 H Creatinine 1.02 Est Cr Clr Drug Dosing 87.7 C-Reactive Protein Cancelled 0.89 H 10/08/19 11:05 WBC 6.81 Neut # (Auto) 4.00 ESR Creatinine Est Cr Clr Drug Dosing C-Reactive Protein Micro Results: 10/08/19 13:50 Gram Stain - Pending Knee Joint Fluid Culture - Pending 10/08/19 11:46 Aerobic Blood Culture - Pending Blood Anaerobic Blood Culture - Pending 10/08/19 11:05 Aerobic Blood Culture - Pending Blood Anaerobic Blood Culture - Pending - Risk Factors for Resistance * Antimicrobial use within the last 90 days: * Cephalexin 500 mg PO TID (started 10/03/2019) - Assessment & Plan Assessment 68 year old M admitted secondary to right lower extremity pain, redness and swelling x 10 days deemed to be cellulitis. * Underwent R knee arthroscopy on 09/27 and has noticed all these symptoms since procedure * Started on Cephalexin on 10/02 for cellulitis * Underwent RLE venous doppler on 10/05 which was negative for DVT * Upon presentation: patient was afebrile, no leukocytosis, SCr 1.02, ESR 35, CRP 0.89 * R Knee XR showed moderate sized R knee effusion * He underwent aspiration of the joint which was rod in color and normal WBCs w/o overt pus * Cultures are pending at this time Plan IV Vancomycin and Ceftriaxone for treatment of RLE Cellulitis Vancomycin IV * Estimated PK Parameters: Vd 0.6 L/kg, Gregor 0.08 hr-1, t1/2 ~ 9 hrs * Loading dose: 2250 mg (20 mg/kg) * Maintenance dose: 1500 mg IV (13 mg/kg) every 12 hours * Goal trough level: 10 to 20 mcg/mL * Trough level ordered for Thursday at 1530 to assess steady state levels Ceftriaxone (not a pharmacy consult) * 2 g IV every 24 hours Pharmacy will continue to follow and will adjust dose/frequency as necessary. Thank you.
[2019-10-08] MEDS ORDERED: COUGH DROP (SUGAR FREE) LOZ 24 LOZ/1 BOX BUCCAL PRN (19:29)
[2019-10-08] MEDS: ENOXAPARIN INJ 40 MG/0.4 ML SYR SQ SCH (19:46)
[2019-10-08] MEDS: ACETAMINOPHEN 325 MG TAB PO SCH (21:03)
[2019-10-08] MEDS: OXYCODONE HCL IR 5 MG TAB (IMMEDIATE RELEASE) PO PRN (21:36)
[2019-10-09] MEDS: VANCOMYCIN HCL 1,500 MG in SODIUM CHLORIDE 0.9% 500 ML IV SCH ×2 (04:28→16:22)
[2019-10-09] MEDS: OXYCODONE HCL IR 5 MG TAB (IMMEDIATE RELEASE) PO PRN ×2 (04:33→11:53)
[2019-10-09 05:58] LABS: Basophils # (auto) 0.04 K/uL (0-0.2); Basophils % (auto) 0.6 %; Eosinophils # (auto) 0.48 K/uL (0-0.5); Eosinophils % (auto) 7.4 %; Hematocrit (blood only) 43.2 % (42-52); Hemoglobin 14.6 g/dL (14.0-18.0); Immature Granulocytes # (auto) 0.02 K/uL (0.00-0.02); Immature Granulocytes % (auto) 0.3 %; Lymphocytes # (auto) 1.73 K/uL (1.2-3.4); Lymphocytes % (auto) 26.8 %; Mean Corpuscular Hemoglobin 32.4 pg (25-34); Mean Corpuscular Hgb Conc 33.8 g/dL (32-36); Mean Platelet Volume 10.3 fL (7.4-10.4); Monocytes # (auto) 0.78 K/uL (0.11-0.59); Monocytes % (auto) 12.1 %; Neutrophils # (auto) 3.41 K/uL (1.4-6.5); Neutrophils % (auto) 52.8 %; Platelet Count 203 K/uL (130-400); RDW Coefficient of Variation 13.9 % (11.5-14.5); RDW Standard Deviation 48.9 fL (36.4-46.3); White Blood Count 6.46 K/uL (4.8-10.8)
[2019-10-09 06:26] LABS: BUN Creatinine Ratio 18.3 (10-20); Calcium 8.5 mg/dl (8.5-10.1); Creatinine Clr Calc Pharmacy 87.8 ml/min; Est GFR (African American) 85.9; Est GFR (Non-African American) 74.1; Magnesium 2.3 mg/dl (1.8-2.4); Potassium 4.5 mmol/L (3.5-5.1)
[2019-10-09] MEDS: KETOROLAC TROMETHAMINE 15 MG/ML VIAL IV PRN ×2 (08:07→17:22)
[2019-10-09] MEDS: ATORVASTATIN 40 MG TAB PO SCH (08:09)
[2019-10-09] MEDS: allopurinoL 300 MG TAB PO SCH (08:09)
[2019-10-09] MEDS: ACETAMINOPHEN 325 MG TAB PO SCH ×3 (08:09→21:20)
[2019-10-09] MEDS: MULTIVITAMIN TAB PO SCH (08:10)
[2019-10-09] MEDS: LOSARTAN POTASSIUM 50 MG TAB PO SCH (08:10)
--- NOTE | 2019-10-09 10:16 | Orthopedic Progress Note ---
Date of Service October 09, 2019 Assessment & Plan (1) Cellulitis of right leg: His presentation again looks most consistent with cellulitis in his right lower leg. No evidence of septic knee joint. He is about 11 days out from his previous right knee arthroscopy. The appearance of the knee joint looks very typical status post knee arthroscopy. His sutures were removed today. He is currently receiving vancomycin and ceftriaxone for his cellulitis. He did receive a repeat DVT ultrasound yesterday, which was again negative. No indication for surgical intervention at this point. Admission and Anticipated Discharge Date Admission Date: October 08, 2019 Subjective He is doing fair this morning. He still has a fair bit of pain in the lower leg. He does not notice much improvement from yesterday. He says that the lower leg was very warm to the touch earlier this morning, but seems to have cooled down a bit since then. Physical Exam Physical Exam: Examination of the right lower leg again reveals diffuse erythema, swelling, and induration, consistent with cellulitis. The lower leg feels a little less warm than yesterday. The knee joint again has a moderate effusion, slightly reaccumulated from yesterday. Again, no significant warmth, erythema, or induration around the knee joint itself. Results & Data ([facility]) Vital Signs (Past 12 Hours) Vital Signs Temp Pulse Resp BP BP Pulse Ox 10/09/19 07:15 36.6 C 78 16 167/97 H 95 10/08/19 23:04 36.5 C 73 18 138/82 95 Laboratory Results Knee joint aspirate: 143 white blood cells (93% monocytes, 7% PMNs), 12,000 red blood cells Gram stain showed no organisms, cultures are pending. Diagnostic Findings Repeat ultrasound of the right lower extremity completed yesterday was negative for DVT.
--- NOTE | 2019-10-09 13:41 | Hospitalist Progress Note ---
Date of Service October 09, 2019 Assessment & Plan (1) Cellulitis of right leg: Present on admission with RLE pain, erythema and swelling Failed outpatient abx therapy Knee xray showed moderate size right knee joint effusion. Soft tissue swelling. Moderate tricompartmental osteoarthritis of the right knee. Doppler U/S RLE showed no evidence of deep venous thrombus within the right lower extremity. Received IV Ceftriaxone and IV Vanco in the ER Knee was aspirated in the ER and was negative for septic joint. Ortho on board No surgical intervention required as per ortho Blood cx and aspiration joint fluid cx no growth Continue IV Vanco and IV Rocephin Continue pain control (2) HTN (hypertension): BP fluctuated possible related to pain continue losartan Monitor BP (3) HLD (hyperlipidemia): continue statin (4) Gout: continue allopurinol (5) DVT prophylaxis: SQ Lovenox Disposition Will discharge once medically stable Admission and Anticipated Discharge Date Admission Date: October 08, 2019 Subjective Pt was seen and examined sitting in bed with no distress Pt said that he continues to have pain in right LE He said that the leg redness seems to be more prominent today He said that the pain med help but does not seem to last Denies any chest pain, palpitation, dizziness and SOB Physical Exam Physical Exam: General- No acute distress Head- atraumatic Eyes- PERRL, EOMI, ENT- oropharynx clear Neck- supple, no JVD Lungs- clear to auscultation Heart- regular rhythm; +murmur Abdomen- normal bowel sounds, soft, nontender Extremities- no calf tenderness, +RLE erythema, tenderness and swelling Neuro- alert, oriented x 3; PERRL, EOMI; no facial palsy; no dysarthria Skin- warm & dry Results & Data Results & Data ([facility]) Vital Signs (Past 12 Hours) Vital Signs Temp Pulse Resp BP Pulse Ox 10/09/19 07:15 36.6 C 78 16 167/97 H 95
[2019-10-09] MEDS: cefTRIAXone SODIUM 2,000 MG in DEXTROSE 5% 50 ML IV SCH (15:31)
[2019-10-09] MEDS: ENOXAPARIN INJ 40 MG/0.4 ML SYR SQ SCH (18:58)
[2019-10-09] MEDS ORDERED: AMLODIPINE BESYLATE 5 MG TAB PO SCH (20:40)
[2019-10-09] MEDS ORDERED: MoRPHine SULFATE 4 MG/ML 1 ML CARP\\VIAL IV PRN (20:41)
--- NOTE | 2019-10-09 20:41 | Communication Note ---
Date of Service: October 09, 2019 Made aware by RN of uncontrolled blood pressure since a.m. SBP 160-170s. Patient with leg discomfort as per RN. AP Hypertensive urgency Add amlodipine to Losartan. Will relay to AM provider.
[2019-10-10] MEDS: VANCOMYCIN HCL 1,500 MG in SODIUM CHLORIDE 0.9% 500 ML IV SCH ×2 (03:21→16:27)
[2019-10-10] MEDS ORDERED: HydrALAZINE HCL 20 MG/ML VIAL IV PRN ×2 (07:43→08:04)
--- NOTE | 2019-10-10 07:49 | Hospitalist Progress Note ---
Date of Service October 10, 2019 Assessment & Plan (1) Cellulitis of right leg: Present on admission with RLE pain, erythema and swelling Failed outpatient abx therapy Knee xray showed moderate size right knee joint effusion. Soft tissue swelling. Moderate tricompartmental osteoarthritis of the right knee. Doppler U/S RLE showed no evidence of deep venous thrombus within the right lower extremity. Received IV Ceftriaxone and IV Vanco in the ER Knee was aspirated in the ER and was negative for septic joint. Ortho on board No surgical intervention required as per ortho Blood cx and aspiration joint fluid cx no growth Continue IV Vanco and IV Rocephin Continue pain control Sx are improving add ammonium lactate topically to RLE (2) HTN (hypertension): BP fluctuated possible related to pain and hospitalization states well controlled as outpt continue losartan, amlodipine 2.5mg added per overnight provider Monitor BP (3) HLD (hyperlipidemia): continue statin (4) Gout: continue allopurinol (5) DVT prophylaxis: SQ Lovenox Disposition Will discharge home once medically stable Pt was seen and examined in collaboration With Dr. Engle, please see addendum Admission and Anticipated Discharge Date Admission Date: October 08, 2019 Supervising Physician Co-Signing Physician Notes Pt was seen and examined. Agreed with Marissa ROMO exam, assessment and plan. Sitting in chair with no distress. Pt said that pain/swelling and redness improve. Continue IV Vanco and IV Rocephin. Plan to transition to PO abx on discharge. BP elevated and pt was started on Amlodipine. Amlodipine increased to 5mg. Continue monitor closely. MD Oniel Subjective Patient was seen and examined in room 376-1. Follow up RLE Cellulitis. Overall feeling improved. Still has pain and tightness, but now mostly around ankle. Feels swelling is receding, but leg still discolored. Able to ambulate better. Did two laps around unit last evening. Denies f/c/s, chest pain, sob, cough, n/v/d. No BM. Took miralax. Discussed BP. He monitors BP at home and usually well controlled with losartan. Review of Systems Review of Systems: All systems reviewed & are unremarkable except as noted in HPI & below Physical Exam Physical Exam: Gen: WD/WN, M, NAD, A&O x3 HEENT: Normocephalic, atraumatic, conjunctivae moist, sclerae anicteric, mucous membranes moist. Lung: Clear to Auscultation bilaterally, no wheezes/rales/rhonchi Heart: Regular rate, regular rhythm, 1/6 FERNANDO RUSB, rubs, or gallops Abdomen: Soft, NT, ND +BS x 4 Extremities: RLE edema, but improving, RLE venous stasis changes pretibial to ankle, no warmth, pedal pulse +1 and equal b/l Skin: Warm, no rash, negative turgor. Results & Data Results & Data ([facility]) Vital Signs (Past 12 Hours) Vital Signs Temp Pulse Resp BP Pulse Ox 10/10/19 07:02 36.4 C L 80 17 165/101 H 93 10/09/19 23:15 36.4 C L 69 16 153/77 H 94 Medications Administered Acetaminophen (Tylenol) 650 mg PO TID MAURI Stop: 11/07/19 20:59 Last Admin: 10/09/19 21:20 Dose: 650 mg Documented by: [id number] Admin: 10/09/19 13:45 Dose: 650 mg Documented by: [id number] Admin: 10/09/19 08:09 Dose: 650 mg Documented by: [id number] Admin: 10/08/19 21:03 Dose: 650 mg Documented by: [id number] Allopurinol (Zyloprim) 300 mg PO QAM MAURI Stop: 11/08/19 08:59 Last Admin: 10/09/19 08:09 Dose: 300 mg Documented by: [id number] Amlodipine Besylate (Norvasc) 2.5 mg PO HS MAURI Stop: 11/08/19 20:39 Last Admin: 10/09/19 21:20 Dose: 2.5 mg Documented by: [id number] Atorvastatin Calcium (Lipitor) 40 mg PO QAM MAURI Stop: 11/08/19 08:59 Last Admin: 10/09/19 08:09 Dose: 40 mg Documented by: [id number] Enoxaparin Sodium (Lovenox) 40 mg SQ Q24H MAURI Stop: 11/07/19 18:59 Last Admin: 10/09/19 18:58 Dose: 40 mg Documented by: [id number] Admin: 10/08/19 19:46 Dose: 40 mg Documented by: [id number] Ceftriaxone Sodium 2,000 mg/ (Dextrose) 70 mls @ 100 mls/hr IV Q24H MAURI; Protocol Stop: 10/14/19 16:41 Last Infusion: 10/09/19 16:21 Dose: 0 mls/hr Documented by: [id number] Admin: 10/09/19 15:31 Dose: 100 mls/hr Documented by: [id number] Vancomycin HCl 1,500 mg/ (Sodium Chloride) 530 mls @ 200 mls/hr IV Q12H MAURI; Protocol Stop: 10/16/19 03:59 Last Infusion: 10/10/19 05:59 Dose: 0 mls/hr Documented by: [id number] Admin: 10/10/19 03:21 Dose: 200 mls/hr Documented by: [id number] Infusion: 10/09/19 19:16 Dose: 0 mls/hr Documented by: [id number] Admin: 10/09/19 16:22 Dose: 200 mls/hr Documented by: [id number] Infusion: 10/09/19 07:07 Dose: 0 mls/hr Documented by: [id number] Admin: 10/09/19 04:28 Dose: 200 mls/hr Documented by: [id number] Losartan Potassium (Cozaar) 100 mg PO QAM MAURI Stop: 11/08/19 08:59 Last Admin: 10/09/19 08:10 Dose: 100 mg Documented by: [id number] Multivitamins (Multivitamin Tab) 1 tab PO DAILY MAURI Stop: 11/08/19 08:59 Last Admin: 10/09/19 08:10 Dose: 1 tab Documented by: [id number] Oxycodone HCl (Roxicodone Immediate Rel) 5 mg PO Q6H PRN PRN Reason: Pain Stop: 10/22/19 18:16 Last Admin: 10/09/19 11:53 Dose: 5 mg Documented by: [id number] Admin: 10/09/19 04:33 Dose: 5 mg Documented by: [id number] Admin: 10/08/19 21:36 Dose: 5 mg Documented by: [id number] Polyethylene Glycol (Miralax Powder Packet) 17 gm PO DAILY PRN PRN Reason: Constipation Stop: 11/07/19 18:08 Last Admin: 10/10/19 06:06 Dose: 17 gm Documented by: [id number] Discontinued Medications Acetaminophen (Tylenol) 1,000 mg PO NOW STA Stop: 10/08/19 14:45 Last Admin: 10/08/19 14:46 Dose: 1,000 mg Documented by: [id number] Acetaminophen (Tylenol) Confirm Administered Dose 1,000 mg .ROUTE .STK-MED ONE Stop: 10/08/19 14:46 Last Admin: 10/08/19 14:47 Dose: Not Given Documented by: [id number] Hydromorphone HCl (Dilaudid) 0.5 mg IV Q15M PRN PRN Reason: Pain Stop: 10/22/19 10:30 Last Admin: 10/08/19 14:47 Dose: 0.5 mg Documented by: [id number] Admin: 10/08/19 12:23 Dose: 0.5 mg Documented by: [id number] Admin: 10/08/19 11:56 Dose: 0.5 mg Documented by: [id number] Admin: 10/08/19 11:12 Dose: 0.5 mg Documented by: [id number] Vancomycin HCl 2,250 mg/ (Sodium Chloride) 545 mls @ 200 mls/hr IV NOW ONE Stop: 10/08/19 18:19 Last Infusion: 10/08/19 19:48 Dose: 0 mls/hr Documented by: [id number] Infusion: 10/08/19 19:00 Dose: 200 mls/hr Documented by: [id number] Admin: 10/08/19 16:45 Dose: 200 mls/hr Documented by: [id number] Ceftriaxone Sodium (Rocephin) 2,000 mg in 70 mls @ 140 mls/hr IV NOW STA Stop: 10/08/19 16:05 Last Infusion: 10/08/19 16:12 Dose: 0 mls/hr Documented by: [id number] Admin: 10/08/19 15:45 Dose: 140 mls/hr Documented by: [id number] Ketorolac Tromethamine (Toradol) 15 mg IV Q8H PRN PRN Reason: Pain Stop: 10/14/19 07:44 Last Admin: 10/09/19 17:22 Dose: 15 mg Documented by: [id number] Admin: 10/09/19 08:07 Dose: 15 mg Documented by: [id number] Lidocaine HCl (Buffered Lidocaine 1%) Confirm Administered Dose 20 ml INFIL .STK-MED ONE Stop: 10/08/19 12:29 Last Admin: 10/08/19 13:10 Dose: 20 ml Documented by: [id number] Morphine Sulfate (Morphine Sulfate) 4 mg IV NOW STA Stop: 10/08/19 17:25 Last Admin: 10/08/19 18:23 Dose: 4 mg Documented by: [id number] Ondansetron HCl (Zofran) 4 mg IV NOW STA Stop: 10/08/19 10:32 Last Admin: 10/08/19 11:12 Dose: 4 mg Documented by: [id number]
[2019-10-10] MEDS: OXYCODONE HCL IR 5 MG TAB (IMMEDIATE RELEASE) PO PRN ×2 (08:50→19:31)
[2019-10-10] MEDS: LOSARTAN POTASSIUM 50 MG TAB PO SCH (08:50)
[2019-10-10] MEDS: ATORVASTATIN 40 MG TAB PO SCH (08:50)
[2019-10-10] MEDS: allopurinoL 300 MG TAB PO SCH (08:51)
[2019-10-10] MEDS: MULTIVITAMIN TAB PO SCH (08:51)
[2019-10-10] MEDS: ACETAMINOPHEN 325 MG TAB PO SCH ×3 (08:51→20:45)
[2019-10-10] MEDS: AMMONIUM LACTATE 12% LOTION 225 GM BTL EXT SCH ×2 (09:16→20:12)
[2019-10-10] MEDS ORDERED: IBUPROFEN 200 MG TAB PO STA (12:30)
[2019-10-10] MEDS ORDERED: VANCOMYCIN TROUGH ONE (15:30)
[2019-10-10] MEDS: cefTRIAXone SODIUM 2,000 MG in DEXTROSE 5% 50 ML IV SCH (15:38)
--- NOTE | 2019-10-10 17:38 | Pharmacy Report ---
Pharmacy Abx Dose Short Note - Date of Service October 10, 2019 - Assessment & Plan Assessment 68 year old M admitted secondary to right lower extremity pain, redness and swelling x 10 days deemed to be cellulitis. * Day #2 of antibiotic therapy * Patient is afebrile and without leukocytosis. Renal function is stable. * Blood and synovial fluid cultures are negative. Plan Vancomycin * Trough level of 14.0 mcg/mL is therapeutic * Continue dose of 1500 mg IV every 12 hours * Goal trough level: 10 to 20 mcg/mL * Trough level ordered for Thursday to ensure patient does not accumulate vancomycin Pharmacy will continue to follow and will adjust dose/frequency as necessary. Thank you.
[2019-10-10] MEDS: ENOXAPARIN INJ 40 MG/0.4 ML SYR SQ SCH (18:57)
[2019-10-10] MEDS ORDERED: AMLODIPINE BESYLATE 5 MG TAB PO SCH (19:45)
[2019-10-11] MEDS: VANCOMYCIN HCL 1,500 MG in SODIUM CHLORIDE 0.9% 500 ML IV SCH ×2 (03:51→16:51)
[2019-10-11] MEDS: ACETAMINOPHEN 325 MG TAB PO SCH ×3 (06:44→19:55)
[2019-10-11 07:05] LABS: Creatinine Clr Calc Pharmacy 97.3 ml/min; Est GFR (African American) 97.3
[2019-10-11] MEDS: LOSARTAN POTASSIUM 50 MG TAB PO SCH (07:13)
[2019-10-11] MEDS: ATORVASTATIN 40 MG TAB PO SCH (08:56)
[2019-10-11] MEDS: MULTIVITAMIN TAB PO SCH (08:57)
[2019-10-11] MEDS: allopurinoL 300 MG TAB PO SCH (08:57)
[2019-10-11] MEDS: AMMONIUM LACTATE 12% LOTION 225 GM BTL EXT SCH ×2 (08:57→19:57)
--- NOTE | 2019-10-11 15:29 | Hospitalist Progress Note ---
Date of Service October 11, 2019 Assessment & Plan (1) Cellulitis of right leg: Present on admission with RLE pain, erythema and swelling Failed outpatient abx therapy Knee xray showed moderate size right knee joint effusion. Soft tissue swelling. Moderate tricompartmental osteoarthritis of the right knee. Doppler U/S RLE showed no evidence of deep venous thrombus within the right lower extremity. Received IV Ceftriaxone and IV Vanco in the ER Knee was aspirated in the ER and was negative for septic joint. Ortho on board No surgical intervention required as per ortho Blood cx and aspiration joint fluid cx no growth Continue IV Vanco and IV Rocephin Continue pain control Clinically improved Plan to transition to oral abx on discharge (2) HTN (hypertension): BP fluctuated possible related to pain and hospitalization states well controlled as outpt continue losartan Amlodipine increased to 7.5 per overnight provider Continue monitor BP (3) HLD (hyperlipidemia): continue statin (4) Gout: continue allopurinol (5) DVT prophylaxis: SQ Lovenox Disposition Possible discharge home tomorrow if medically stable Follow up with your PCP Dr. Mota on 10/13 @ 11:40 AM Admission and Anticipated Discharge Date Admission Date: October 08, 2019 Subjective Pt was seen and examined Sitting in chair with no distress with at bedside Pt said that he feels ok His RLE redness continue to improve slowly He said that he has been walking in the hallway Denies any chest pain, palpitation, dizziness and SOB Physical Exam Physical Exam: General- No acute distress Head- atraumatic Eyes- PERRL, EOMI, ENT- oropharynx clear Neck- supple, no JVD Lungs- clear to auscultation Heart- regular rhythm; +murmur Abdomen- normal bowel sounds, soft, nontender Extremities- no calf tenderness, +RLE erythema, tenderness and swelling improve Neuro- alert, oriented x 3; PERRL, EOMI; no facial palsy; no dysarthria Skin- warm & dry Results & Data Results & Data ([facility]) Vital Signs (Past 12 Hours) Vital Signs Temp Pulse Pulse Resp BP BP Pulse Ox 10/11/19 11:55 146/95 H 10/11/19 10:36 78 171/102 H 10/11/19 08:54 36.8 C 78 17 188/99 H 99 10/11/19 06:31 169/91 H
[2019-10-11] MEDS: cefTRIAXone SODIUM 2,000 MG in DEXTROSE 5% 50 ML IV SCH (15:57)
[2019-10-11] MEDS: ENOXAPARIN INJ 40 MG/0.4 ML SYR SQ SCH (19:54)
[2019-10-11] MEDS ORDERED: AMLODIPINE BESYLATE 5 MG TAB PO SCH (21:00)
[2019-10-12] MEDS: VANCOMYCIN HCL 1,500 MG in SODIUM CHLORIDE 0.9% 500 ML IV SCH (04:51)
[2019-10-12] MEDS ORDERED: ACETAMINOPHEN 325 MG TAB PO PRN (08:29)
[2019-10-12] MEDS: allopurinoL 300 MG TAB PO SCH (08:50)
[2019-10-12] MEDS: MULTIVITAMIN TAB PO SCH (08:50)
[2019-10-12] MEDS: ATORVASTATIN 40 MG TAB PO SCH (08:50)
[2019-10-12] MEDS: AMMONIUM LACTATE 12% LOTION 225 GM BTL EXT SCH (08:51)
[2019-10-12] MEDS: LOSARTAN POTASSIUM 50 MG TAB PO SCH (08:51)
[2019-10-12 09:09] LABS: Basophils # (auto) 0.04 K/uL (0-0.2); Basophils % (auto) 0.6 %; Eosinophils # (auto) 0.15 K/uL (0-0.5); Eosinophils % (auto) 2.3 %; Hematocrit (blood only) 45.8 % (42-52); Hemoglobin 15.7 g/dL (14.0-18.0); Immature Granulocytes # (auto) 0.02 K/uL (0.00-0.02); Immature Granulocytes % (auto) 0.3 %; Lymphocytes # (auto) 1.59 K/uL (1.2-3.4); Lymphocytes % (auto) 24.2 %; Mean Corpuscular Hemoglobin 32.8 pg (25-34); Mean Corpuscular Hgb Conc 34.3 g/dL (32-36); Mean Corpuscular Volume 95.6 fL (80-100); Mean Platelet Volume 10.4 fL (7.4-10.4); Monocytes # (auto) 0.57 K/uL (0.11-0.59); Monocytes % (auto) 8.7 %; Neutrophils # (auto) 4.19 K/uL (1.4-6.5); Neutrophils % (auto) 63.9 %; Platelet Count 246 K/uL (130-400); RDW Coefficient of Variation 13.9 % (11.5-14.5); RDW Standard Deviation 49.2 fL (36.4-46.3); Red Blood Count 4.79 M/uL (4.7-6.1); White Blood Count 6.56 K/uL (4.8-10.8)
[2019-10-12 09:39] LABS: Albumin Level 2.8 gm/dl (3.4-5.0); BUN Creatinine Ratio 15.6 (10-20); Calcium 8.5 mg/dl (8.5-10.1); Creatinine Clr Calc Pharmacy 98.4 ml/min; Est GFR (African American) 98.6; Est GFR (Non-African American) 85.1; Potassium 4.1 mmol/L (3.5-5.1)
[2019-10-12 09:41] LABS: Albumin Globulin Ratio 0.7 (0.9-2); Bilirubin,Total 0.5 mg/dl (0.2-1); Globulin 4.1 gm/dl (2.5-4.0); Total Protein 6.9 gm/dl (6.4-8.2)
[2019-10-12] MEDS: cefTRIAXone SODIUM 2,000 MG in DEXTROSE 5% 50 ML IV SCH (14:27)
[2019-10-12] MEDS ORDERED: VANCOMYCIN TROUGH ONE (15:30)
--- NOTE | 2019-10-12 15:36 | Hospitalist Progress Note ---
Date of Service October 12, 2019 Assessment & Plan (1) Cellulitis of right leg: -This is a patient who presented on admission with RLE pain, erythema and swelling while on outpatient oral antibiotics. -Knee xray showed moderate size right knee joint effusion. Soft tissue swelling. Moderate tricompartmental osteoarthritis of the right knee. -Doppler U/S RLE showed no evidence of deep venous thrombus within the right lower extremity. -Received IV Ceftriaxone and IV Vanco in the ER , Knee was aspirated in the ER and was negative for septic joint, Blood culture and aspiration joint fluid culture no growth . No surgical intervention required as per orthopedics -patient was trialed on IV Vancomycin and IV Ceftriaxone and last dose given on 10/12/2019 discharge medications sent electronically to [address] [place] [id number] of Augmentin 500 mg twice a day and Doxycycline 100 mg twice a day for 7 more days patient should continue blood pressure and cholesterol medication of losartan 100 mg daily and atorvastatin 40 mg daily 10/14/2019 11:40 AM Provider Anselmo Mota MD Department [facility] 10/17/2019 11:00 AM Provider Nurse Annual Well[facility] Department [facility] 10/19/2019 11:30 AM Provider Cliff Falcon Jr., DO Department Cardiology, [facility] 01/25/2020 1:30 PM Provider Jo Ann Huntley MD Department Dermatology [facility] (2) HTN (hypertension): -amlodipine was added on this hospitalization in addition to home dose of losartan 100 mg daily -patient should continue blood pressure and cholesterol medication of losartan 100 mg daily and atorvastatin 40 mg daily -outpatient followups 10/14/2019 11:40 AM Provider Anselmo Mota MD Department [facility] 10/17/2019 11:00 AM Provider Nurse [facility] Department [facility]illary [facility] 10/19/2019 11:30 AM Provider Cliff Falcon Jr., DO Department Cardiology, [facility] 01/25/2020 1:30 PM Provider Jo Ann Huntley MD Department Dermatology [facility] (3) HLD (hyperlipidemia): continue statin (4) Gout: continue allopurinol (5) DVT prophylaxis: -SQ Lovenox while inpatient Admission and Anticipated Discharge Date Admission Date: October 08, 2019 Subjective patient reports right leg erythema has improved significantly. denies acute pain of the leg. no dizziness. no headache. no chest pain. no shortness of breath. no abdomen pain. no nausea. no vomiting Review of Systems Review of Systems: All systems reviewed & are unremarkable except as noted in Subjective Physical Exam Constitutional: comfortable Eyes: PERRL, conjunctivae normal, anicteric sclerae EOM intact bilaterally ENMT: external ear and nose normal, oropharynx normal Neck: trachea midline, no thyromegaly normal visual inspection Respiratory: normal respiratory effort, lungs clear to auscultation Cardiovascular: Rate/Rhythm: regular rate Gastrointestinal (Abdomen): normal bowel sounds, soft, nontender, no hepatosplenomegaly Musculoskeletal: Head/Neck/Chest: normocephalic Skin: + rash (mild erythema area of the anterior fuentes) Neurologic: PERRL, EOMI, accommodation nl, no face palsy, no dysarthria CN's II-XI intact bilaterally Psychiatric: A+Ox3, euthymic affect Results & Data Results & Data ([facility]) Vital Signs (Past 12 Hours) Vital Signs Temp Pulse Resp BP BP Pulse Ox 10/12/19 15:05 36.5 C 81 19 159/101 H 95 10/12/19 07:20 36.4 C L 82 16 141/97 H 96
--- NOTE | 2019-10-12 15:45 | Discharge Summary ---
Date of Service October 12, 2019 Admission HPI Per Admitting Provider This is a 68-year-old male who has significant past medical history of HTN, HLD, gout, Bronchiectasis, chronic low back pain who presents to ED secondary to worsening right leg pain, redness and swelling times approximately 10 days. Of significance patient underwent R knee arthroscopy with partial medial meniscectomy and shaving chondroplasty of the patella on 09/28/2019. Since procedure he has been experiencing increased right leg pain, swelling and warmth. He was seen in clinic on 10/02 and started on Keflex and reevaluated on 10/05. He underwent right lower extremity venous Doppler on 10/05 which was negative. He has been taking Keflex as [id number] mg 3 times daily. He compares pain to right leg to his gout. Complains of being warm and increased swelling. Swelling extends from behind the knee to the ankle and foot. He denies any fever, chills, sweats, lightheadedness, dizziness, chest pain, shortness of breath, cough, nausea, vomiting, diarrhea, abdominal pain. He did move his bowels yesterday. He denies any constipation despite taking oxycodone for pain. His appetite has been normal. Of significance he was tested for COVID on 09/25 for preop which was negative. In ED patient remained hemodynamically stable and was afebrile. His white blood cell count was WNL, H&H stable at 15.4 and 46.0, platelet 226, BUN 19, creatinine 1.02, ESR 35, CRP 0.89. Right knee x-ray revealed no acute fracture, moderate sized right knee effusion, moderate tricompartmental arthritis. He underwent aspiration of the joint which was rod in color and normal WBCs. No overt pus per ED provider. He was seen and evaluated by orthopedics while in ED. Blood culture and synovial fluid culture sent for analysis. Symptoms felt likely due to cellulitis versus joint infection. He was started on IV vancomycin and rocephin. Principal Diagnosis Cellulitis of right leg Hypertension Hyperlipidemia Gout, chronic (on allopurinol) Discharge Exam Constitutional comfortable Eyes PERRL, conjunctivae normal, anicteric sclerae EOM intact bilaterally ENMT external ear and nose normal, oropharynx normal Neck trachea midline, no thyromegaly normal visual inspection Respiratory normal respiratory effort, lungs clear to auscultation Cardiovascular Rate/Rhythm: regular rate Gastrointestinal (Abdomen) normal bowel sounds, soft, nontender, no hepatosplenomegaly Musculoskeletal Head/Neck/Chest: normocephalic Skin + rash (mild erythema area of the anterior fuentes) Neurologic PERRL, EOMI, accommodation nl, no face palsy, no dysarthria CN's II-XI intact bilaterally Psychiatric A+Ox3, euthymic affect Discharge Data Allergies Allergy/AdvReac Type Severity Reaction Status Date / Time desipramine Allergy Unknown unknown Verified 03/14/16 06:37 Tetracyclines Allergy Unknown unknown Verified 03/14/16 06:37 trimethoprim Allergy Unknown unknown Verified 03/14/16 06:37 Consultations 10/08/19 16:38 ED Decision to Admit Stat Ordered Studies 10/08/19 16:38 US venous doppler LE RT Stat Hospital Course (1) Cellulitis of right leg: -This is a patient who presented on admission with RLE pain, erythema and swelling while on outpatient oral antibiotics. -Knee xray showed moderate size right knee joint effusion. Soft tissue swelling. Moderate tricompartmental osteoarthritis of the right knee. -Doppler U/S RLE showed no evidence of deep venous thrombus within the right lower extremity. -Received IV Ceftriaxone and IV Vanco in the ER , Knee was aspirated in the ER and was negative for septic joint, Blood culture and aspiration joint fluid culture no growth . No surgical intervention required as per orthopedics -patient was trialed on IV Vancomycin and IV Ceftriaxone and last dose given on 10/12/2019 discharge medications sent electronically to [address] [place] [address], [place] [id number] of Augmentin 500 mg twice a day and Doxycycline 100 mg twice a day for 7 more days patient should continue blood pressure and cholesterol medication of losartan 100 mg daily and atorvastatin 40 mg daily 10/14/2019 11:40 AM Provider Anselmo Mota MD Department Family Practice [facility] 10/17/2019 11:00 AM Provider Nurse Annual [facility] Department [facility] 10/19/2019 11:30 AM Provider Cliff Falcon Jr., DO Department Cardiology, [facility] 01/25/2020 1:30 PM Provider Jo Ann Huntley MD Department Dermatology [facility] (2) HTN (hypertension): -amlodipine was added on this hospitalization in addition to home dose of losartan 100 mg daily -patient should continue blood pressure and cholesterol medication of losartan 100 mg daily and atorvastatin 40 mg daily -outpatient followups 10/14/2019 11:40 AM Provider Anselmo Mota MD Department [facility] 10/17/2019 11:00 AM Provider Nurse [facility] Department [facility] 10/19/2019 11:30 AM Provider [facility] Jr[facility]/25/2020 1:30 PM Provider Jo Ann Huntley MD Department Dermatology [facility] (3) HLD (hyperlipidemia): continue statin (4) Gout: continue allopurinol (5) DVT prophylaxis: -SQ Lovenox while inpatient Total Time Total Time Spent Total Time Spent (In Minutes): 40 minutes Total Time Includes: Examination of the Patient, Discharge Planning, Medication Reconciliation and Communication With Other Providers Discharge Plan Discharge Items Patient Disposition: Home - Self-Care Reason For Visit: R LOWER EXTREMITY CELLULITIS Discharge Diagnosis: Cellulitis of right leg Hypertension Hyperlipidemia Gout, chronic (on allopurinol) Condition on Discharge: Good Activity: Resume your previous activity Non-emergency contact: Primary Care Provider Call non-emergency contact if: you have any medication questions Follow-up/Referrals: Anselmo Mota MD [Primary Care Provider] - Diet: Heart Healthy Addtl Attending Provider Instructions: discharge medications sent electronically to [address] [place] [id number] of Augmentin 500 mg twice a day and Doxycycline 100 mg twice a day for 7 more days; acetaminophen 325 mg every 6 hours as needed for pain of fever; aml odipine 10 mg daily for hypertension patient should continue blood pressure and cholesterol medication of losartan 100 mg daily and atorvastatin 40 mg daily upcoming appointments 10/14/2019 11:40 AM Provider Anselmo Mota MD Department [facility] 10/17/2019 11:00 AM Provider Nurse [facility] Department [facility] 10/19/2019 11:30 AM Provider Cliff Falcon Jr., DO Department Cardiology, [facility] 01/25/2020 1:30 PM Provider Jo Ann Huntley MD Department Dermatology [facility] Pending Studies at Discharge: No Studies:: Knee xray showed moderate size right knee joint effusion. Soft tissue swelling. Moderate tricompartmental osteoarthritis of the right knee. Doppler U/S RLE showed no evidence of deep venous thrombus within the right lower extremity. Stand-Alone Forms: [facility], Smoking Cessation Medications and DC Order Prescriptions: New doxycycline hyclate 100 mg Capsule 100 mg PO BID 7 Days Qty: 14 RF: 0 amoxicillin-pot clavulanate 500-125 mg Tablet 1 tab PO BIDM 7 Days Qty: 14 RF: 0 amlodipine [Norvasc] 5 mg Tablet 10 mg PO HS 30 Days Qty: 60 RF: 0 acetaminophen 325 mg Tablet 325 mg PO Q6H PRN (Reason: fever or pain) 5 Days Qty: 20 RF: 0 Continued multivitamin [Multiple Vitamins] Tablet 1 tab PO DAILY RF: 0 atorvastatin 40 mg tablet 40 mg PO QAM RF: 0 allopurinol 300 mg tablet 300 mg PO QAM RF: 0 albuterol sulfate [Ventolin HFA] 90 mcg/actuation HFA aerosol inhaler 2 inh INHALATION Q4H PRN (Reason: Shortness Of Breath) RF: 0 losartan 100 mg tablet 100 mg PO QAM RF: 0 oxycodone 5 mg tablet 5 - 10 mg PO Q6H PRN (Reason: Pain) RF: 0 Discontinued cephalexin 500 mg capsule 500 mg PO Q8H RF: 0 Discharge Orders: Discharge Order (Routine); Ordered 10/12/19 Ordered By: Lukasz Toribio Admission Data Admit Date/Time: 10/08/19 16:50 Attending Provider: Lukasz Toribio Admit Provider: Julio Olson Primary Care Provider: Anselmo Mota Other Providers: Julio Olson
[2019-10-13] MEDS ORDERED: DOXYCYCLINE HYCLATE 100 MG CAP PO SCH (09:00)
[2019-10-13] MEDS ORDERED: AMOXICILLIN/CLAVULANATE 500 MG TAB PO SCH (09:00)
--- NOTE | 2019-10-25 08:48 | Coding Query ---
CODING QUERY To promote full compliance with coding requirements relating to patient care, provider participation is requested in all cases of motor vehicles inspector uncertainty. Please assist us with the question(s) below: Coding Question(s): There is documentation of Cellulitis of right leg as well as documentation of being about 11 days out from right knee arthroscopy procedure. Please clarify below, in your clinical opinion. ( ) Cellulitis of right leg is likely a Postoperative Complication ( X ) Cellulitis of right leg is NOT likely a Postoperative Complication ( ) Other: Please Specify Physician's Response(s): Thank you Shruthi Woo Principal Diagnosis: "that condition established after study, to be chiefly responsible for occasioning the admission of the patient to the hospital for care." Co-Existing Principal Diagnosis: "when two or more diagnoses equally meet the criteria for principal diagnosis as determined by the circumstances of admission, diagnostic work up, and/or therapy provided, and the Alphabetic Index, Tabular List, or another coding guideline does not provide sequencing direction, any one of the diagnoses may be sequenced first." "When the physician has documented what appears to be a current diagnosis in the body of the record, but has not included the diagnosis in the final diagnostic statement, the physician should be asked whether the diagnosis should be added." (Source [facility]oding [facility] 2 QTR90. p3-4) ALBA
== END 2019-10-12 16:29 | disposition home or self-care (01) | DRG 603 ==
LOC: ED 09:14 → SUATTDRO 16:50 → 3N 16:50